=== PATIENT | male | born 1935 | race Caucasian/White ===

== ENCOUNTER 2017-12-19 13:01 | Outpatient (CLI) | payer MEDICARE ==
--- NOTE | 2017-12-19 19:04 | RAD ---
CHEST TWO VIEWS: Date: 12-19-17 Comparison: None. FINDINGS: There is an area of lingular haziness. I cannot tell if this is an infiltrate or fat pad. Correlation with symptoms and any old films would be useful. The lungs were otherwise clear. The heart is normal in size for age. Faint calcification is seen in the aortic arch. IMPRESSION: Lingular haziness. See above. POS: HOME
== END 2017-12-19 13:02 | disposition home or self-care (01) ==
LOC: BURRAD 13:01
PROVIDERS: ATTEND Nurse Practitioner
DX: J20.9 Acute bronchitis, unspecified (principal)
CPT/HCPCS: 71046

== ENCOUNTER 2017-12-24 10:43 | Emergency (ER) | payer MEDICARE | END 2017-12-24 11:20 | disposition home or self-care (01) | LOC: BURERS 10:43 | DX: S29.012A Strain of muscle and tendon of back wall of thorax, initial encounter (principal); F17.210 Nicotine dependence, cigarettes, uncomplicated; E78.5 Hyperlipidemia, unspecified; I10 Essential (primary) hypertension; Z79.82 Long term (current) use of aspirin; Z79.899 Other long term (current) drug therapy; X50.1XXA Overexertion from prolonged static or awkward postures, initial encounter | CPT/HCPCS: 99283 ==